=== PATIENT | female | born 1960 | race Caucasian/White ===

== ENCOUNTER 2018-10-11 10:27 | Day surgery (SDC) | payer OTHER ==
[~2018-10-11] VITALS: Ht 149.9 cm; Wt 65.9 kg
[~2018-10-11 10:27] MED LIST: ATOR40TA68 PO; CALC1TAB79 PO; CHOL500010 PO; PANT40TA3 PO
[2018-10-11 11:23] VITALS: Ht 149.9 cm; Wt 65.9 kg
[2018-10-11 17:06] VITALS: BP 113/60; PULSE 65; RESP 16
== END 2018-10-11 17:38 | disposition home or self-care (01) ==
LOC: SDS 10:27
PROVIDERS: ATTEND Thoracic Surgery (Cardiothoracic Vascular Surgery)
DX: I83.892 Varicose veins of left lower extremity with other complications (principal)
CPT/HCPCS: 37765; J2250; J3010; Z7512; Z7610; 88304